=== PATIENT | female | born 1980 ===

== ENCOUNTER 2016-06-23 16:00 | Emergency (ER) | payer SELFPAY ==
[2016-06-23 16:44] VITALS: BMI 25.7
[2016-06-23 17:29] LABS: RBC URINE 1 /hpf (0-3); URINE BILIRUBIN NEGATIVE (NEGATIVE); URINE BLOOD SMALL (NEGATIVE); URINE COLOR YELLOW (YELLOW); URINE GLUCOSE (UA) NEG (Normal); URINE KETONE NEGATIVE (NEGATIVE); URINE LEUKOCYTE ESTERASE NEG Leu/uL (Negative); URINE PROTEIN NEGATIVE (NEGATIVE); URINE UROBILINOGEN 0.2-1.0 mg/dL (0.2-1.0); WBC URINE < 1 /hpf (0-5)
--- NOTE | 2016-06-23 18:32 | OBDCSUM ---
Datetime: 06/23/2016 18:23 Discharged to, Provider: Home Follow up at, Provider: [facility], [place] Disch Instr Activity: Normal activity Disch Instr Diet: Regular Discharge Diagnosis, Provider: Anthony Labor - Undelivered Discharge Time: 06/23/2016 18:23 Follow up in weeks, Provider: 06/27/2016 Disch Referrals: None Discharge Diagnosis Prov Other: visual dist
== END 2016-06-23 18:26 | disposition home or self-care (01) ==
LOC: H.EROB2 16:00
DX: O47.03 False labor before 37 completed weeks of gestation, third trimester (principal); Z3A.32 32 weeks gestation of pregnancy; O26.93 Pregnancy related conditions, unspecified, third trimester; H53.9 Unspecified visual disturbance

== ENCOUNTER 2016-08-02 07:30 | Emergency (ER) | payer SELFPAY ==
--- NOTE | 2016-08-02 07:40 | OBHP ---
Datetime: 06/23/2016 16:45 IP Adm Impression: , intrauterine ; No Active Labor; Intact Membranes IP Admit Plan: Observation/Evaluation Admit Comment, IP Provider: IUP at 32w EDC August 19 acc to pt dates c/o visual dist at lunchti me (spots) short moment and went away while walking. No LAM. no CTX. no VB. No SROM. +FM POBGYNH: day 2 PMH denies PSH: denies NKA PSOH: denies A; IUP at 32w not in labor/threatened PTL visual dis PLAN: check UA/FFN discussion with pt about medical condition PO fluids Pelvic Type - PN: Adequate Extremities - PN: Normal Abdomen - PN: Normal Back - PN: Normal Breast - PN: Not Done Lungs - PN: Normal Heart - PN: Normal Thyroid - PN: Normal Neurologic - PN: Normal HEENT - PN: Normal General - PN: Normal FHR - Baseline A Provider: 140 Membranes, Provider: Intact Contraction Comments Provider: + Comments, ACOG Physical Exam: Us Bedside: vertexROS: General: no weakness; no fatigue HEENT: no LAM; + visual dist CV: no palpitations; no no CP GI: noN/V no diarhea No epigastric pain; non radiating : no F/U/D MS: No joint pain Pool Provider: Negative IP Hx Assessment: Undocumented EGA AdmitDate IP: 31.6 Vital Signs Provider: Reviewed; Within Normal Limits IP Chief Complaint: Other NICHD Variability Prov Fetus A: Moderate 6-25bpm NICHD Accel Fetus A IP Provider: 15X15 FHR Category Provider Fetus A: Category I NICHD Decel Fetus A IP Provider: None Dilatation, Provider: 0 Genitourinary Exam: Normal DTRs - PN: Normal
[2016-08-02 07:43] VITALS: BMI 27.3
== END 2016-08-02 09:31 | disposition home or self-care (01) ==
LOC: H.EROB2 07:30
DX: O47.03 False labor before 37 completed weeks of gestation, third trimester (principal); Z3A.32 32 weeks gestation of pregnancy

== ENCOUNTER 2016-08-04 11:15 | Emergency (ER) | payer SELFPAY ==
--- NOTE | 2016-08-04 11:22 | OBHP ---
Datetime: 08/02/2016 08:46 IP Adm Impression: Term, intrauterine IP Admit Plan: Observation/Evaluation Admit Comment, IP Provider: 36 YO F @ 37 weeks came into [facility] after having crampy lower abdomin al pain since 1:30 am. Patient describes pain 4-5. Denies LOF, VB, CTX, N/V - Patient had a U/S ound wednesday which showed baby being 5lb 3 oz PMH: None PSH: none Allergy: None Med: PNV F/H: None GBS: Positive A/P: 36 YO @37 weeks presents to the [facility] w/ lower abdominal pain - Contiue to monitor heart rate Ernie Roblero M.D Addendum: I saw and examined the patient presentation. No evidence of labor at this time. Maternal well-being and well-being reassuring at this time. Patient discharged home with lab or precautions. [place] Extremities - PN: Normal Abdomen - PN: Normal Lungs - PN: Normal Heart - PN: Normal HEENT - PN: Normal General - PN: Normal FHR - Baseline A Provider: 145 EGA AdmitDate IP: 37.4 Vital Signs Provider: Reviewed; Within Normal Limits IP Chief Complaint: Maternal discomfort NICHD Variability Prov Fetus A: Moderate 6-25bpm NICHD Accel Fetus A IP Provider: 15X15 FHR Category Provider Fetus A: Category I NICHD Decel Fetus A IP Provider: None
--- NOTE | 2016-08-04 12:08 | OBDCSUM ---
Datetime: 08/04/2016 12:03 Discharged to, Provider: Home Follow up at, Provider: [facility] Disch Instr Activity: Normal activity Disch Instr Diet: Regular Discharge Diagnosis, Provider: Anthony Labor - Undelivered Discharge Time: 08/04/2016 12:03 Follow up in weeks, Provider: 08/06/2016 Disch Referrals: None
--- NOTE | 2016-08-04 12:19 | OBHP ---
Datetime: 08/04/2016 12:03 IP Adm Impression: Term, intrauterine ; No Active Labor IP Admit Plan: Discharge home Admit Comment, IP Provider: IUP at 37+w Saw blood when wiped after urinating this morning. Occasional pain. No SROM. +FM Denies complication (no previa confirmed) PNC: [facility] appt thurs chart rev'd PMH: denies PSH: denies POBH: x 2; no complicatoins PGYNH: denies STD NKA A: IUP at 37w not in active labor reactive NST/bloody show noted A: IUP at 37w not in active labor GBS+ PLAN: dischareg home follow up as scheduled Pelvic Type - PN: Adequate Extremities - PN: Normal Abdomen - PN: Normal Back - PN: Normal Breast - PN: Not Done Lungs - PN: Normal Heart - PN: Normal Thyroid - PN: Normal Neurologic - PN: Normal HEENT - PN: Normal General - PN: Normal Presentation-Admit: Vertex IP Fetus A Comments: Sono ivanh FHR - Baseline A Provider: 150 Membranes, Provider: Intact Comments, ACOG Physical Exam: ROS: general: no fatigue/no weakness HEENT: no LAM; no visual dist CV: No CP; No palpitations Resp: no SOB; no cough GI: No N/V/D : no F/U/D MS: no joint pain Pool Provider: Negative IP Hx Assessment: The History has been Reviewed and is Current EGA AdmitDate IP: 37.6 Vital Signs Provider: Reviewed; Within Normal Limits IP Chief Complaint: Uterine contractions; Vaginal bleeding NICHD Variability Prov Fetus A: Moderate 6-25bpm NICHD Accel Fetus A IP Provider: 15X15 FHR Category Provider Fetus A: Category I Dilatation, Provider: 1 Effacement, Provider: 0 Station, Provider: high Genitourinary Exam: Normal DTRs - PN: Normal
== END 2016-08-04 12:00 | disposition home or self-care (01) ==
LOC: H.EROB2 11:15 → H.L&D 11:15 → H.EROB2 12:00
DX: O47.1 False labor at or after 37 completed weeks of gestation (principal); Z3A.37 37 weeks gestation of pregnancy

== ENCOUNTER 2016-08-04 23:04 | Inpatient (IN) | payer MEDICAID, SELFPAY ==
[2016-08-04 23:23] VITALS: BMI 26.4
[2016-08-04] MEDS ORDERED: Lactated Ringer's 1,000 ML IV SCH (23:47)
[2016-08-04] MEDS ORDERED: Penicillin G Potassium 5 MU in Sodium Chloride 0.9% 50 ML IVPB ONE (23:51)
[2016-08-05] MEDS ORDERED: Lactated Ringer's 1,000 ML IV SCH (00:15)
[2016-08-05 00:25] VITALS: BP 115/70; O2SAT 100
[2016-08-05 00:28] LABS: BASO # 0.1 K/uL (0.0-0.2); BASO % 0.6 % (0.0-2.0); EOS # 0.1 K/uL (0.0-0.7); EOS % 1.1 % (0.0-4.0); HEMATOCRIT 40.7 % (34.0-47.0); LYMPH # 3.8 K/uL (1.0-4.3); LYMPH % 30.3 % (20.0-40.0); MEAN CELL VOLUME 88.1 fl (81.0-99.0); MEAN CORPUSCULAR HGB CONC 32.9 g/dL (33.0-37.0); MEAN PLATELET VOLUME 8.9 fl (7.2-11.7); MONO # 0.9 K/uL (0.0-0.8); MONO % 7.5 % (0.0-10.0); NEUT # 7.6 K/uL (1.8-7.0); NEUT % 60.5 % (50.0-75.0); NRBC % 0.1 % (0.0-0.0); RED CELL DISTRIBUTION WIDTH 14.3 % (11.5-14.5); WHITE BLOOD COUNT 12.6 K/uL (4.8-10.8)
[2016-08-05] MEDS ORDERED: Oxytocin 30 units/LR 500ML 30 U/500 ML BAG IV SCH ×2 (00:58→04:41)
[2016-08-05] MEDS ORDERED: Benzocaine/Menthol SPRAY TOP PRN ×2 (00:58→04:41)
[2016-08-05] MEDS ORDERED: Oxycodone/Acetaminophen 5/325 mg Tab PO PRN ×4 (00:58→04:41)
--- NOTE | 2016-08-05 01:14 | OBADHP ---
Datetime: 08/04/2016 23:55 Admit Comment, IP Provider: 36 y/o @ 37.6 weeks IUP presents w/ uterine contractions. Patie nt reprots contractions worsening around 19:00, lasting 1 minute, occurring every 3-5 minutes, and ge tting stronger. The patient also reports vaginal spotting similar to her complaint this morning when she visited [facility]. The patient reports positive movements and taking PNVs. Patient denies LOF , headaches, chest pain, SOB, n/v/d, dysuria, and fevers Clinic: [facility] PMH: none allergies: NKDA PSH: none OBHx: x2 , FT, no complications SOC: denies, smoking, alcohol, and drugs GBS: POSITIVE all other labs in [facility] brought show no results O: CV: RRR Resp: CTA bl Pelvic: 5-6 cm, 80%, -1, intact membranes A: 36 y/o @ 37.6 wks IUP presents w/ uterine contractions P: admit to unit initiate labor protocol continuous monitoring enema ordered LR IV bolus LR IV @ 125mL/hr penicillin 5MU once penicillin 2.5 MU Q4h nubain ordered for pain patient declines epidural at this time anticipate vaginal delivery Clyde Rey MD [employer] Resident OB Hospitalist note: pt was seen with PGY1...agree with note...in labor/GBS+...PLAN admit for abx and observe progress/pain management discussed MAHNDO Pelvic Type - PN: Adequate Extremities - PN: Not Done Abdomen - PN: Normal Back - PN: Not Done Breast - PN: Not Done Lungs - PN: Normal Heart - PN: Normal Thyroid - PN: Not Done Neurologic - PN: Not Done HEENT - PN: Normal General - PN: Normal FHR - Baseline A Provider: 160 Membranes, Provider: Intact IP Hx Assessment: The History has been Reviewed and is Current Vital Signs Provider: Reviewed; Within Normal Limits IP Chief Complaint: Uterine contractions NICHD Variability Prov Fetus A: Moderate 6-25bpm NICHD Accel Fetus A IP Provider: 15X15 FHR Category Provider Fetus A: Category I NICHD Decel Fetus A IP Provider: None Dilatation, Provider: 5 Effacement, Provider: 80 Station, Provider: -1 Genitourinary Exam: Normal DTRs - PN: Not Done EGA AdmitDate IP: 38.0 IP Adm Impression: Term, intrauterine IP Admit Plan: Admit to unit; Initiate labor protocol Datetime: 08/04/2016 12:03 Presentation-Admit: Vertex IP Fetus A Comments: Sono ceph Comments, ACOG Physical Exam: ROS: general: no fatigue/no weakness HEENT: no LAM; no visual dist CV: No CP; No palpitations Resp: no SOB; no cough GI: No N/V/D : no F/U/D MS: no joint pain Pool Provider: Negative Datetime: 06/23/2016 16:45 Contraction Comments Provider: +
[2016-08-05 02:58] VITALS: PULSE 83; RESP 16; TEMP 98.6
[2016-08-05 06:59] LABS: HEMATOCRIT 38.1 % (34.0-47.0); MEAN CELL VOLUME 89.4 fl (81.0-99.0); MEAN CORPUSCULAR HEMOGLOBIN 29.3 pg (27.0-31.0); MEAN CORPUSCULAR HGB CONC 32.8 g/dL (33.0-37.0); RED CELL DISTRIBUTION WIDTH 14.5 % (11.5-14.5); WHITE BLOOD COUNT 17.4 K/uL (4.8-10.8)
--- NOTE | 2016-08-05 08:03 | OBDS ---
DELIVERY PERSONNEL Delivery Doctor: Mike Ly DO Assistant Manager Quality Management: Daria Tinajero RN Resident: DR. Rey MATERNAL INFORMATION Delivery Anesthesia: None Medications in Delivery: 30/500 pit/ pennG 5mu Estimated Blood Loss (ml): 200 Placenta Cultured: No Maternal Complications: None Provider Comments: patient became fully dilated as penicillin 5MU was being administered for GBS +.. .Over intact perinuem, of live 9,9. No laceratoins noted. Placenta delivered inta ct spontaneously. EBL 200cc She remained stable LABOR SUMMARY EDC: 08/19/2016 00:00 No. Babies in Womb: 1 Attempted: No Labor Anesthesia: None LABOR INFORMATION Reason for Induction: Not Applicable Onset of Labor: 08/05/2016 00:10 Complete Dilatation: 08/05/2016 00:45 Other Ripening Agents: Oxytocin: N/A Group B Beta Strep: Positive Antibiotics # of Doses: 1x PennG 5 mu Antibiotics Time of Last Dose: 11 Steroids Given: None Reason Steroids Not Administered: Not Applicable MEMBRANES Membranes Rupture Method: Spontaneous Rupture of Membranes: 08/05/2016 00:44 Length of Rupture (hrs): 0.03 Amniotic Fluid Color: Clear Amniotic Fluid Amount: Moderate Amniotic Fluid Odor: None STAGES OF LABOR Stage 1 hrs: 0 Stage 1 min: 35 Stage 2 hrs: 0 Stage 2 min: 1 Stage 3 hrs: 0 Stage 3 min: 8 Total Time in Labor hrs: 0 Total Time in Labor min: 44 VAGINAL DELIVERY Episiotomy: None Laceration Extension: N/A Laceration Type: None Laceration Repair: Not Applicable Initial Vag Sponge Count: 5 Final Vag Sponge Count: 5 Initial Vag Sharps Count: 0 Final Vag Sharps Count: 0 Sponge Count Correct: Yes Sharps Count Correct: N/A BABY A INFORMATION Delivery Date/Time: 08/05/2016 00:46 Method of Delivery: Vaginal Born in Route : No : N/A Forceps: N/A Vacuum Extraction: N/A Shoulder Dystocia : No ASSISTED DELIVERY BABY A Station Vacuum/Forcep Apply: SHOULDER DYSTOCIA BABY A Infant Delivery Date/Time: 08/05/2016 00:46 PRESENTATION/POSITION BABY A Presentation: Cephalic Cephalic Presentation: Vertex Vertex Position: Left Occipital Anterior Breech Presentation: N/A PLACENTA INFORMATION BABY A Placenta Delivery Time : 08/05/2016 00:54 Placenta Method of Delivery: Spontaneous Placenta Status: Delivered SCORES BABY A Heart Rate 1 min: >100 bpm Resp Effort 1 min: Good Cry Reflex Irritability 1 min: Cough or Sneeze or Pulls Away Muscle Tone 1 min: Active Motion Color 1 min: Body [place], Extremities Blue Resuscitation Effort 1 min: N/A SCORE 1 MIN: 9 Heart Rate 5 min: >100 bpm Resp Effort 5 min: Good Cry Reflex Irritability 5 min: Cough or Sneeze or Pulls Away Muscle Tone 5 min: Active Motion Color 5 min: Body [place], Extremities Blue Resuscitation Effort 5 min: N/A SCORE 5 MIN: 9 INFORMATION BABY A Gestational Age at Delivery: 38.0 Gestational Status: Term Infant Outcome : Liveborn Infant Condition : Stable Infant Sex: Male IDENTIFICATION/MEDS BABY A ID Band Number: [id number] ID Band Location: Left Leg; Left Arm WEIGHT/LENGTH BABY A Birthweight (gms): 2945 Weight (lb): 6 Weight (oz): 8 CORD INFORMATION BABY A No. Cord Vessels: 3 Nuchal Cord : N/A Cord Blood Taken: Yes Suction: None
--- NOTE | 2016-08-05 09:57 | OBPPN ---
Datetime: 08/05/2016 05:47 PP Pain Prov: Within normal limits PP Nausea Prov: Denies PP Flatus Prov: Yes PP BM Prov: No PP Breasts Prov: Not Done PP Heart Prov: Normal PP Lungs Prov: Normal PP Abdomen/Uterus Prov: Normal PP Lochia Prov: Normal PP Vulva/Perineum Prov: Not Done PP CVA Tenderness Prov: Not Done PP Extremities Prov: Not Done PP C/S Incision Prov: Not Applicable PP Progress Prov: Normal PP Impression Prov: Normal progression PP Plan Prov: Continue present management PP Progress Note Prov: 36 y/o now seen and examined at bedside. Patient delivered baby boy ear ly this morning. Patient reports mild pelvic pain controlled w/ pain meds. OOB/Ambulating w/o dizzi ness. Breast/bottle feeding w/o difficulty. Tolerating PO diet well. Lochia is less than menses in volume. Voiding freely w/ no blood noted. Reports no bowel movement. Denies fevers, chills, n/v/d , CP/SOB, lightheadedness and calf pain. PE: GEN: A_O, resting comfortably in bed, NAD Lung: CTA B/L, no wheezing, rhonchi, or rales CVS: S1, S2 wnl, RRR Abd: +BS, firm fundus below umbilicus. EXT: no edema, negative Katy's, calves non-tender Assessment: 36 y/o now s/p on 08/05/2016 @ 00:46 tolerating pain w/ medication, tolerati ng oral intake, adequate urine output, doing well on PPD0. Plan: Percocet 5/325 mg 1-2 tabs PO Q6h prn for mod/severe pain. Ibuprofen 600 mg 1 tab Q6h PO pr n for mild pain. Encourage breast feeding and ambulation. Clyde Rey M.D. [place] [employer]age Operator PGY-1 Patient was seen with the resident and I agree with note Encourage ambulation, encourage breast-feeding, Motrin as needed IP PP Procedures: None Vital Signs Provider PP: Reviewed; Within Normal Limits
--- NOTE | 2016-08-06 12:24 | OBPPN ---
Datetime: 08/06/2016 05:29 PP Pain Prov: Within normal limits PP Nausea Prov: Denies PP Flatus Prov: Yes PP BM Prov: Yes PP Breasts Prov: Normal PP Heart Prov: Normal PP Lungs Prov: Normal PP Abdomen/Uterus Prov: Normal PP Lochia Prov: Normal PP Vulva/Perineum Prov: Normal PP CVA Tenderness Prov: Normal PP Extremities Prov: Normal PP C/S Incision Prov: Not Applicable PP Progress Prov: Normal PP Impression Prov: Normal progression PP Plan Prov: Continue present management PP Progress Note Prov: 36 y/o now seen and examined at bedside. Patient delivered baby boy ear ly this morning. Patient reports mild pelvic pain controlled w/ pain meds. OOB/Ambulating w/o dizzi ness. Breast/bottle feeding w/o difficulty. Tolerating PO diet well. Lochia is less than menses in volume. Voiding freely w/ no blood noted. Reports bowel movement. Denies fevers, chills, n/v/d, C P/SOB, lightheadedness and calf pain. PE: GEN: A_O, resting comfortably in bed, NAD Lung: CTA B/L, no wheezing, rhonchi, or rales CVS: S1, S2 wnl, RRR Abd: +BS, firm fundus below umbilicus. EXT: no edema, negative Katy's, calves non-tender Assessment: 36 y/o now s/p on 08/05/2016 @ 00:46 tolerating pain w/ medication, tolerati ng oral intake, adequate urine output, doing well on PPD1. Plan: Percocet 5/325 mg 1-2 tabs PO Q6h prn for mod/severe pain. Ibuprofen 600 mg 1 tab Q6h PO pr n for mild pain. Encourage breast feeding and ambulation. Clyde Rey M.D. Stockkeeper PGY-1 IP PP Procedures: None Vital Signs Provider PP: Reviewed; Within Normal Limits
--- NOTE | 2016-08-07 10:11 | OBDCSUM ---
Datetime: 08/07/2016 05:27 Discharged to, Provider: Home Follow up at, Provider: Disch Instr Activity: Normal activity Disch Instr Diet: Regular Discharge Instructions, Provider: Routine instructions given Discharge Diagnosis, Provider: Term Delivered Discharge Time: 08/07/2016 05:27 Follow up in weeks, Provider: 4-6 weeks Disch Referrals: None Contraception discussed, Prov: Yes Disch Activity Restrictions: No sexual activity; Nothing in vagina - [place], tampons, douche Discharge Comment, Provider: 36 y/o now @ 37.6 wks had uncomplicated at term w/ no risk factors Delivered baby boy on 08/05/2016 @00:46, 2945 g, : 9,9 Encourage PNV 1 tab PO once daily Patient cleared for discharge Ibuprofen 600 mg 1 tab PO Q6h prn for moderate pain nothing in vagina, if excessive bleeding or fever without relief from Tylenol go to ED F/U w/ [facility] in 4-6 weeks Clyde Rey M.D. Research Worker Kitchen PGY-1 Contraception after Delivery: Foam/Condoms
--- NOTE | 2016-08-07 10:11 | OBPPN ---
Datetime: 08/07/2016 09:22 PP Pain Prov: Within normal limits PP Nausea Prov: Denies PP Flatus Prov: Yes PP Breasts Prov: Not Done PP Heart Prov: Normal PP Lungs Prov: Normal PP Abdomen/Uterus Prov: Normal PP Lochia Prov: Not Done PP Vulva/Perineum Prov: Not Done PP CVA Tenderness Prov: Normal PP Extremities Prov: Normal PP Progress Prov: Normal PP Impression Prov: Normal progression PP Plan Prov: Discharge PP Progress Note Prov: Patient doing well ambulating tolerating diet and voiding without difficulty Vital signs stable afebrile Uterus firm below the umbilicus Extremities no Homans day #2 Discharged home Nothing per vagina Motrin as needed Follow-up in 6 weeks for PMD Vital Signs Provider PP: Reviewed Datetime: 08/07/2016 05:26 PP BM Prov: Yes PP C/S Incision Prov: Not Applicable IP PP Procedures: None
== END 2016-08-07 11:55 | disposition home or self-care (01) | DRG 775 ==
LOC: H.EROB2 23:04 → H.L&D 23:51 → H.OB/GYN 08-05 04:30
PROVIDERS: ADMIT Obstetrics & Gynecology; ATTEND Obstetrics & Gynecology
PROC: 4A1HXCZ Monitoring of Products of Conception, Cardiac Rate, External Approach (ICD-10-PCS; 2016-08-04)
PROC: 10E0XZZ Delivery of Products of Conception, External Approach (ICD-10-PCS; principal; 2016-08-05)
DX: O99.824 Streptococcus B carrier state complicating childbirth (principal); Z37.0 Single live birth; Z3A.37 37 weeks gestation of pregnancy